=== PATIENT | female | born 1995 | race African-American/Black ===

== ENCOUNTER 2021-07-01 10:54 | Outpatient (CLI) | payer OTHER ==
--- NOTE | 2021-07-01 11:41 | SLEEP CARE CONSULTATION ---
Information from patient questionnaire entered by Fatoumata Waite. I have reviewed and concur with the information entered by Fatoumata Waite. This document represents the service I personally performed and the decisions made by me, Karmen Rush ARNP. History of Present Illness Service Date and Time: 07/01/2021 1054 Reason for Visit: New patient Chief Complaint: reports: Unrefreshed sleep, Snoring, Excessive daytime sleepiness, Observed pauses in breathing, Frequent awakenings at night Date of Onset: 2.5 years Usual bedtime: 2300 Time it takes to fall asleep: 10-20 minutes Snores at night: Yes Observed to quit breathing while asleep: Yes Sleeps alone due to snoring: No Number of times waking at night: 1 Reasons for waking at night: reports: Other (unknown reason) Toss, Turn, or Twitch while sleeping: Yes Recalls having dreams: Yes Usually gets out of bed at: work days 0600, non work days [id number] Feels refreshed in the morning: No Morning headache: No Sleepy or fatigued during the day: Yes Ever fallen asleep while driving: No Takes day naps: Yes (daily, for 1-1.5 hours usually) Dreams during day naps: No Prior sleep studies: No Additional HPI information: I had the pleasure of seeing PATTI FELICIANO today regarding the possibility of her having a sleep disorder. Her current complaints are frequent night awakenings, snoring and unrefreshed sleep. She has has some trouble with not feeling rested and occasional night awakenings. She feels this has worsened in the last few months. She had a trauma due to her experiencing a roommate passing away a few months ago. Since this time she will wake up for no reason and have difficulty going back to sleep. She wakes up not feeling rested most days. She used to normally just sleep through the night but now she is waking up at least once a night. She has been told that she snores loudly and also having pauses in breathing. Someone has videotaped her snoring and they heard pauses in her breathing. She denies waking up choking or gasping for air. - Parasomnia Symptoms Ever been unable to move upon waking from sleep: No Walks in sleep: No Talks in sleep: Yes Ever acted out dreams in sleep: No Ever felt weak in the knees when startled or emotional: No Bothered by creepy, crawly, restless sensations in legs: No Problems with memory or concentration: No Subjective Initial Sharon Sleepiness Scale score: 12 (in 2020) Past Medical History Past Medical History: reports: Other (sickle cell train, telogen effluvium) Social History The patient's occupation is a [employer]. Patient is Single and lives in [place]. Have you smoked in the past 12 months: No Alcohol use: Yes Alcohol amount and frequency: 2-3 occassions a month Caffeine use: Yes Caffeine amount and frequency: 2 drinks/day Family History Family history of sleep disordered breathing: No Allergies and Home Medications Drug allergies reviewed: Yes (NKDA) Home medication list reviewed: Yes Allergy and home medication list: Spironolactone Review of Systems Weight gain over past 5 years: 50 Cardiovascular: reports: chest pain. denies: high blood pressure Gastrointestinal: denies: heartburn Neurological: denies: headaches, seizure Psychiatric: reports: other (acute depression). denies: anxiety, depression, mood disorder Ear/Nose/Throat: denies: sinus problems, injury to nose, tonsillectomy, wisdom teeth removed Endocrine: denies: thyroid disease Immunologic: reports: rash. denies: allergies to food or environment Physical Exam Blood Pressure: 120/85 Cuff size: wrist Heart Rate: 79 O2 Saturation: 95 Height: 5 ft 3 in Weight: 210 lb Body Mass Index: 37.2 BMI Classification: Obese Neck circumference: 14.75 (inches) Nostrils: patent to airflow Mouth and throat: narrow oropharynx Soft palate: long Hard palate: normal Uvula: normal Uvula visualization: 50% Mallampati Class II Tongue: enlarged in size with teeth layton on lateral edges Tonsils: 1+ Neck: normal w/o lymphadenopathy or thyromegaly Heart: regular rate and rhythm Lungs: clear bilaterally Impression and Plan 1. Suspected Obstructive Sleep Apnea-Hypopnea Syndrome, as suggested by a history of loud and irregular snoring, observed cessation of breath while asleep, unrefreshed sleep, and excessive daytime sleepiness. Narrow oropharynx and obesity are common predisposing factors for obstructive sleep apnea-hypopnea syndrome. I recommend proceeding to polysomnography to confirm the diagnosis and to assess severity. If the patient has significant sleep disordered breathing, a manual CPAP titration study will also be performed to find the optimal treatment pressure. I informed the patient of what the sleep studies involve and after some discussion, obtained agreement to proceed. The pathophysiology of obstructive sleep apnea-hypopnea syndrome was discussed with the patient and health risks of cardiovascular and cerebrovascular disease if not treated. AASM brochure for obstructive sleep apnea-hypopnea syndrome given and reviewed. Risks of drowsy driving discussed in detail and patient advised to avoid long distance driving and to seedling puller at the first sign of drowsiness. Patient agreed to plan. * Schedule polysomnography +- manual CPAP titration study and return in 1-2 weeks after the study to discuss result and initiate therapy. * Avoid long distance driving or driving when feeling sleepy. * Avoid alcohol, sedative and muscle relaxant around bedtime. * Attempt to lose weight. * Review instructions provided by trained office staff on how to prepare for the sleep study. * Return for follow-up after sleep study completed. Counseling Topics: Weight loss health impact Visit Type: In Office Time Spent with Patient (minutes): 31 Provider Statement: I spent 100% of the Face to Face Visit with the patient with greater than 50% spent counseling the patient and coordination of care.
[2021-07-01 11:42] VITALS: BP 120/85
== END 2021-07-01 10:55 | disposition home or self-care (01) ==
LOC: SC 10:54
PROVIDERS: ATTEND Nurse Practitioner Family
DX: R06.83 Snoring (principal); R06.81 Apnea, not elsewhere classified; G47.8 Other sleep disorders; G47.10 Hypersomnia, unspecified; E66.9 Obesity, unspecified; Z68.37 Body mass index [BMI] 37.0-37.9, adult
CPT/HCPCS: 99203; 99212

== ENCOUNTER 2021-08-07 09:28 | Outpatient (CLI) | payer OTHER | END 2021-08-07 09:29 | disposition home or self-care (01) | LOC: SC 09:28 | PROVIDERS: ATTEND Nurse Practitioner Family | DX: R06.83 Snoring (principal); R06.81 Apnea, not elsewhere classified; G47.8 Other sleep disorders; G47.10 Hypersomnia, unspecified; R09.02 Hypoxemia | CPT/HCPCS: 95806 ==

== ENCOUNTER 2021-08-27 11:07 | Outpatient (CLI) | payer OTHER ==
[2021-08-27 11:39] VITALS: BP 132/96
--- NOTE | 2021-08-27 11:39 | SLEEP CARE CONSULTATION ---
Information from patient questionnaire entered by Becky Esposito MA. I have reviewed and concur with the information entered by Becky Esposito MA. This document represents the service I personally performed and the decisions made by Adri hutton Caren J, ARNP. History of Present Illness Service Date and Time: 08/27/2021 1107 Initial Buckley Sleepiness Scale score: 12 (in 2020) Current Buckley Sleepiness Scale score: 13 (in 2020) Additional HPI information: PATTI FELICIANO returns for follow up and results of the recently performed home sleep study. The patient was informed of the following findings: No significant sleep disordered breathing with an average AHI of 4.1 and maru oxygen saturation of 80% and oxygen under 90% for less than 2 minutes. I explained the pathophysiology behind obstructive sleep apnea. Patient does not have sleep apnea and was advised how weight gain could increase the risk of developing sleep apnea in the future. I strongly encouraged the patient to lose weight. Patient does not have significant sleep disordered breathing but has elevated AHI in supine position so advised positional therapy and avoiding supine sleep. Patient has moderate to high snoring. Snoring can be reduced by weight loss. Weight loss is best achieved with diet consult. Patient instructed to contact PCP for referral. Snoring can also be treated with an oral appliance from a dentist. Advised to check insurance coverage. In addition, an ENT evaluation can be do to see if other treatment is indicated. Patient counseled not drink alcohol less than 4 hours before bedtime as it can increase snoring and apnea. Patient was cautioned about risks of drowsy driving until sleepiness symptoms resolve. Sleep Study - Results Prior sleep studies: No Polysomnography/Home Sleep Study results: Physician Impression: The quality of the study is good. The length of the study is adequate (> 240 minutes). Please also see the tabulated and graphic data. 1. No significant sleep disordered breathing, with an AHI of 4.1/hr and maru SaO2 of 80%. During the study, the patient had 16 apneas (16 obstructive, 0 central, 0 mixed) and 15 hypopneas. The longest episode lasted 69.0 seconds. The few respiratory events occurred almost exclusively during supine sleep (supine AHI was 6.1 and non-supine, 1.27). 2. Hypoxemia (ICD-10 R09.02), mild, with the lowest oxygen saturation of 80 % and 1.8 minutes with SaO2 under 90%. Baseline oxygen saturation was normal (Average oxygen saturation was 94%). Allergies and Home Medications Home medication list reviewed: Yes Allergy and home medication list: Spironolactone x 2, 50 mg Review of Systems Review of systems same as previous: Yes (no changes) Physical Exam Vital signs obtained and entered by: Lupis ESPOSITO CMA AASAJI Blood Pressure: 132/96 (left) Cuff size: wrist Heart Rate: 87 O2 Saturation: 98 (with mask) Height: 5 ft 3 in Weight: 194 lb (with boots and uniform) Body Mass Index: 34.3 BMI Classification: Obese Impression and Plan Snoring but no significant sleep disordered breathing. Patient advised that often weight loss will reduce snoring as well as apnea risk. An oral appliance can also be used for snoring. This would require a dental consultation. Patient cautioned not to use other online appliances as can cause bite issues. A list of accredited dentists in area and one local dentist who makes oral appliances is available in office. Patient is advised to check if insurance will cover. An ENT consult can also be helpful to determine if any other treatment is an option. * Attempt to lose weight * Avoid supine sleep due to elevated supine AHI * Avoid alcohol consumption near bedtime * Return as needed. Counseling Topics: Sleeping position, Weight loss health impact Visit Type: In Office Time Spent with Patient (minutes): 21 Provider Statement: I spent 100% of the Face to Face Visit with the patient with greater than 50% spent counseling the patient and coordination of care.
== END 2021-08-27 11:08 | disposition home or self-care (01) ==
LOC: SC 11:07
PROVIDERS: ATTEND Nurse Practitioner Family
DX: R06.83 Snoring (principal); E66.9 Obesity, unspecified; Z68.34 Body mass index [BMI] 34.0-34.9, adult
CPT/HCPCS: 99212